=== PATIENT | female | born 1955 | race American Indian/Alaskan Native ===

== ENCOUNTER 2021-07-02 10:06 | Day surgery (SDC) | payer MEDICARE ==
[~2021-07-02 10:06] MED LIST: LACTATED RINGERS 1,000 ML IV SCH; MIDAZOLAM 2 MG/2 ML INJ IV NR; SODIUM CHLORIDE 0.9% IRRIG SOLN 2000 ML IR ONE; WATER FOR IRRIG STERILE 1,500 ML BOTTLE IR ONE
[2021-07-02] MEDS ORDERED: ceFAZolin/Water 2 GM/20 ML 2 GM/20 ML SYRINGE IV ONE (10:48)
[2021-07-02] MEDS ORDERED: ceFAZolin/Water 2 GM/20 ML 2 GM/20 ML SYRINGE IV NR (11:00)
--- NOTE | 2021-07-02 11:17 | Anesthesia Consultation ---
Anesthesia Consult and Med Hx Date of service: 07/02/21 - Airway Anesthetic Teeth Evaluation: Good, Caps ROM Head & Neck: Adequate Mental/Hyoid Distance: Adequate Mallampati Class: Class II Intubation Access Assessment: Probably Good - Pre-Operative Health Status ASA Pre-Surgery Classification: ASA2 Proposed Anesthetic Plan: General - Pulmonary Hx Smoking: Yes (former smoker quit 30yrs ago) Hx Respiratory Symptoms: No - Cardiovascular System Hx Hypertension: Yes (took amlodipine last night) Hx Heart Attack/AMI: No Hx Percutaneous Transluminal Coronary Angioplasty (PTCA): No - Central Nervous System CVA: No - Gastrointestinal Hx Gastroesophageal Reflux Disease: Yes (antiacids prn; asymptomatic today) - Endocrine Hx Renal Disease: No Hx Liver Disease: No Hx Insulin Dependent Diabetes: No Hx Non-Insulin Dependent Diabetes: No Hx Thyroid Disease: No - Additional Comments Anesthesia Medical History Comments: No hx anesthetic complications.
--- NOTE | 2021-07-02 11:18 | Anesthesia Day of Surgery ---
Anesthesia Day of Surgery - Day of Surgery Patient Examined: Yes Patient H&P Reviewed: Yes Patient is NPO: Yes
[2021-07-02] MEDS ORDERED: fentaNYL 100 MCG/2 ML INJ ONE (12:01)
[2021-07-02] MEDS ORDERED: ONDANSETRON 4 MG/2 ML INJ ONE (12:01)
[2021-07-02] MEDS ORDERED: LIDOCAINE MPF (2%) 20 MG/1 ML VIAL 5 ML ONE (12:01)
[2021-07-02] MEDS ORDERED: dexAMETHasone 20 MG/5 ML VIAL ONE (12:01)
[2021-07-02] MEDS ORDERED: propofoL 200 MG/20 ML VIAL IV ONE (12:01)
[2021-07-02] MEDS ORDERED: ePHEDrine SULFATE 50 MG/1 ML INJ ONE (12:16)
[2021-07-02] MEDS ORDERED: SODIUM CHLORIDE 0.9% IRRIG SOLN 2000 ML IR ONE (12:33)
[2021-07-02] MEDS ORDERED: WATER FOR IRRIG STERILE 1,500 ML BOTTLE IR ONE (12:39)
[2021-07-02] MEDS ORDERED: PHENYLEPHRINE/NS 1,000 MCG/10 ML SYRINGE (OR USE) IV ONE (13:07)
--- NOTE | 2021-07-02 13:25 | Post Operative Note ---
Date of procedure: 07/02/21 Pre-op diagnosis: bladder tumor Post-op diagnosis: same Findings: bt Procedure: cysto excision tumor Anesthesia: GETA Surgeon: ALEXIS CALDERA Estimated blood loss: minimal Pathology: list (bladder) Condition: stable Disposition: PACU
--- NOTE | 2021-07-02 13:27 | Discharge Summary ---
Short Stay Discharge Plan Activity: other (no straining ) Weight Bearing Status: Full Weight Bearing Diet: low fat, low cholesterol, low salt Special Instructions: other (inc fluids ) Durable Medical Equipment Needed Upon Discharge: other (home with catheter ) Follow up with: BULL WING [Primary Care Provider] - 7 Days ALEXIS CALDERA MD [Staff Physician] - 7 Days
[2021-07-02] MEDS ORDERED: HYDROmorphone 1 MG/1 ML INJ IV PRN ×2 (13:31)
[2021-07-02] MEDS ORDERED: ONDANSETRON 4 MG/2 ML INJ IV PRN (13:31)
--- NOTE | 2021-07-02 13:54 | Operative Report ---
DATE OF SURGERY: 07/02/2021 PREOPERATIVE DIAGNOSES: Hematuria and bladder cancer. POSTOPERATIVE DIAGNOSES: Hematuria and bladder cancer, pending pathology. PROCEDURES: Cystoscopy, excision of a small bladder tumor at the left dome of the bladder. SURGEON: Enzo Pierce MD ANESTHESIA: General. FINDINGS: This is a woman with a tumor at the dome of the bladder. She had gross hematuria. She now presents for treatment. She has a very thin bladder. DESCRIPTION OF PROCEDURE: The patient was brought to the operating room, placed on the operating table. Following induction of anesthesia, placed in lithotomy position, prepped and draped in usual sterile fashion. The access was difficult because of the location, but you could see that there was a very thin stalk. Retrograde showed good filling, good drainage bilaterally with some air bubbles more on the right. Drainage and fluoroscopy was fine. The tumor was excised with a rigid biopsy instrument and we got deeper biopsies. Definitely included muscle. We saw fatty tissue. The patient tolerated the procedure well. Cystogram showed no significant extravasation. Watters was in good position. The patient tolerated the procedure well and brought to recovery room in stable condition. TID: [id number] RECEIPT: [id number] PEYMAN/MARY
--- NOTE | 2021-07-02 14:36 | Post Anesthesia Evaluation ---
- Post Anesthesia Evaluation Patient Participated: Yes Airway Patent: Yes Stable Respiratory Function: Yes Nausea/Vomiting: No Temp > 96.8F: Yes Pain Manageable: Yes Adequeate Hydration: Yes Anesthesia Complications: No
--- NOTE | 2021-07-02 16:44 | Fluoroscopy Report ---
INTRAOPERATIVE FLUOROSCOPY: RETROGRADE UROGRAPHY INDICATION / CLINICAL INFORMATION: GROSS HEMATURIA. TECHNIQUE: Intraoperative spot images were obtained during the procedure. FINDINGS: Images show bilateral retrograde pyelograms, 10 mL Omnipaque 300 used. See operative/procedure note by performing physician for full details. Fluoroscopy Time: 19 seconds. Fluoroscopy Images: 9 . Signer Name: Vinh Desai MD Signed: 07/02/2021 4:40 PM Workstation Name: [id number]
[2021-07-02 18:11] VITALS: BP 128/67
== END 2021-07-02 15:40 | disposition home or self-care (01) ==
LOC: OR 10:06
PROVIDERS: ATTEND Urology
DX: R31.0 Gross hematuria (principal); C67.1 Malignant neoplasm of dome of bladder; Z20.822 Contact with and (suspected) exposure to COVID-19; I10 Essential (primary) hypertension; K21.9 Gastro-esophageal reflux disease without esophagitis; Z87.891 Personal history of nicotine dependence; Z79.899 Other long term (current) drug therapy; Z98.890 Other specified postprocedural states
CPT/HCPCS: 52234; 74420; 88305; J0690; J1100; J2370; J2405; J2704; J3010; J3490; J7120; Q9967; U0003

== ENCOUNTER 2022-03-16 07:14 | Day surgery (SDC) | payer MEDICARE ==
[2022-03-11 11:50] LABS: Hematocrit 43.7 % (30.3-42.9); Hemoglobin 14.8 gm/dl (10.1-14.3); Mean Corpuscular HGB Conc 34 % (30-34); Mean Corpuscular Volume 88 fl (79-97); Platelet Count 232 K/mm3 (140-440); Red Blood Count 4.98 M/mm3 (3.65-5.03); Red Cell Distribution Width 13.5 % (13.2-15.2)
[2022-03-11 12:18] LABS: Alanine Aminotransferase 9 units/L (7-56); Albumin 4.4 g/dL (3.9-5); BUN/Creatinine Ratio 21; Blood Urea Nitrogen 19 mg/dL (7-17); Calcium 9.3 mg/dL (8.4-10.2); Hemolysis Index 6
[2022-03-16] MEDS ORDERED: ceFAZolin/STERILE WATER 2 GM/20 ML SYRINGE IV NR (08:05)
--- NOTE | 2022-03-16 08:45 | Anesthesia Day of Surgery ---
Anesthesia Day of Surgery - Day of Surgery Patient Examined: Yes Patient H&P Reviewed: Yes Patient is NPO: Yes
[2022-03-16] MEDS ORDERED: HYDROmorphone 0.5 MG/0.5 ML INJ IV PRN ×2 (08:46→09:00)
--- NOTE | 2022-03-16 08:46 | Anesthesia Consultation ---
Anesthesia Consult and Med Hx Date of service: 03/16/22 - Airway Anesthetic Teeth Evaluation: Good, Caps ROM Head & Neck: Adequate Mental/Hyoid Distance: Adequate Mallampati Class: Class III Intubation Access Assessment: Probably Good - Pre-Operative Health Status ASA Pre-Surgery Classification: ASA2 Proposed Anesthetic Plan: General - Pulmonary Hx Smoking: Yes (STOPPED X 30 YRS) Hx Respiratory Symptoms: No Hx Sleep Apnea: No (JOSE E PRE SCREEN LOW RISK) - Cardiovascular System Hx Hypertension: Yes (X 3 YRS) Hx Heart Attack/AMI: No Hx Percutaneous Transluminal Coronary Angioplasty (PTCA): No - Central Nervous System CVA: No Hx Psychiatric Problems: No - Gastrointestinal Hx Gastroesophageal Reflux Disease: Yes (antiacids prn; asymptomatic today) - Endocrine Hx Renal Disease: No Hx Liver Disease: No Hx Insulin Dependent Diabetes: No Hx Non-Insulin Dependent Diabetes: No Hx Thyroid Disease: No - Hematic Hx Anemia: No Hx Sickle Cell Disease: No - Other Systems Hx Alcohol Use: Yes (RARELY) Hx Substance Use: No Hx Cancer: Yes - Additional Comments Anesthesia Medical History Comments: Was here [id number]
[2022-03-16] MEDS ORDERED: LACTATED RINGERS 1,000 ML IV SCH (09:00)
[2022-03-16] MEDS ORDERED: ONDANSETRON 4 MG/2 ML INJ IV PRN (09:00)
[2022-03-16] MEDS ORDERED: MIDAZOLAM 2 MG/2 ML INJ IV NR (09:00)
[2022-03-16] MEDS ORDERED: ceFAZolin/Water 2 GM/20 ML 2 GM/20 ML SYRINGE IV ONE (10:06)
[2022-03-16] MEDS ORDERED: propofoL 200 MG/20 ML VIAL IV ONE (10:49)
[2022-03-16] MEDS ORDERED: LIDOCAINE MPF (2%) 20 MG/1 ML VIAL 5 ML ONE (10:49)
[2022-03-16] MEDS ORDERED: fentaNYL 100 MCG/2 ML INJ ONE (10:49)
--- NOTE | 2022-03-16 11:12 | Post Operative Note ---
Pre-op diagnosis: tcc Post-op diagnosis: same Procedure: cysto bx Anesthesia: GETA Surgeon: ALEXIS CALDERA Estimated blood loss: minimal Pathology: list (bladder) Specimen disposition: to lab Condition: stable Disposition: PACU
--- NOTE | 2022-03-16 11:14 | Discharge Summary ---
Short Stay Discharge Plan Activity: other (no straining ) Weight Bearing Status: Full Weight Bearing Diet: low fat, low cholesterol, low salt Special Instructions: other (inc fluids ) Follow up with: ISMAEL SMITH MD [Primary Care Provider] - 7 Days ALEXIS CALDERA MD [Staff Physician] - 7 Days
[2022-03-16] MEDS ORDERED: WATER FOR IRRIG STERILE 2000 ML IR ONE (11:40)
[2022-03-16] MEDS ORDERED: IOHEXOL 300 MG/ML 50ML IV ONE (11:40)
[2022-03-16] MEDS ORDERED: dexAMETHasone 20 MG/5 ML VIAL ONE (11:49)
[2022-03-16] MEDS ORDERED: ONDANSETRON 4 MG/2 ML INJ ONE (11:49)
[2022-03-16] MEDS ORDERED: GLYCOPYRROLATE 0.4 MG/2 ML INJ ONE (11:49)
[2022-03-16] MEDS ORDERED: ePHEDrine SULFATE 50 MG/1 ML INJ ONE (11:49)
[2022-03-16] MEDS ORDERED: KETOROLAC 30 MG/1 ML INJ ONE (11:49)
--- NOTE | 2022-03-16 12:46 | Operative Report ---
DATE OF SURGERY: 03/16/2022 PREOPERATIVE DIAGNOSES: Bladder cancer, small tiny polypoid area just lateral to the previous lesion. POSTOPERATIVE DIAGNOSES: Bladder cancer, small tiny polypoid area just lateral to the previous lesion. PROCEDURES: Cystoscopy, excision of lesion, retrograde. SURGEON: Enzo Pierce MD ANESTHESIA: General. FINDINGS: This is a woman with history of bladder tumor. Occasional rare hematuria. Cytology is negative. FISH is negative. She now presents for cystoscopy, excision of lesion. DESCRIPTION OF PROCEDURE: The patient was brought to operating room and placed on the operating table. Following induction of anesthesia, placed in lithotomy position, prepped and draped in usual sterile fashion. Cystourethroscopy showed the old scar and just medial to the old scar there was the beginning of a small papillary lesion. This was excised, cauterized. Also, the anterior wall was a little granular. This was biopsied and cauterized. The patient tolerated the procedure well. Catheter will be left for a couple of days, brought to recovery in stable condition. TID: [id number] RECEIPT: [id number] PEYMAN/MARY
--- NOTE | 2022-03-16 14:19 | Fluoroscopy Report ---
INTRAOPERATIVE FLUOROSCOPY: RETROGRADE UROGRAPHY INDICATION: CYSTO BLADDER BX. TECHNIQUE: Intraoperative spot images were obtained during the procedure. FINDINGS: Filling defects in the right ureter may be bubbles of gas. There appears to be persistent narrowing i n the distal right ureter. No significant abnormalities are seen within the left ureter. Please see p rocedure note for details. Fluoroscopy Time: 25 seconds. Fluoroscopy Images: 5. Signer Name: Seng Ramirez MD Signed: 03/16/2022 2:14 PM Workstation Name: [id number]
--- NOTE | 2022-03-16 15:50 | Post Anesthesia Evaluation ---
- Post Anesthesia Evaluation Patient Participated: Yes Airway Patent: Yes Stable Respiratory Function: Yes Nausea/Vomiting: No Temp > 96.8F: Yes Pain Manageable: Yes Adequeate Hydration: Yes Anesthesia Complications: No Block Receding Appropriately: Not Applicable Patient on Ventilator: No
[2022-03-16 18:23] VITALS: BP 116/59
== END 2022-03-16 13:55 | disposition home or self-care (01) ==
LOC: OR 07:14
PROVIDERS: ATTEND Urology
DX: C67.1 Malignant neoplasm of dome of bladder (principal); C67.2 Malignant neoplasm of lateral wall of bladder; N32.89 Other specified disorders of bladder; E78.00 Pure hypercholesterolemia, unspecified; I10 Essential (primary) hypertension; K21.9 Gastro-esophageal reflux disease without esophagitis; Z87.440 Personal history of urinary (tract) infections; Z20.822 Contact with and (suspected) exposure to COVID-19; Z87.891 Personal history of nicotine dependence; Z79.899 Other long term (current) drug therapy; Z88.8 Allergy status to other drugs, medicaments and biological substances; Z98.49 Cataract extraction status, unspecified eye; Z98.891 History of uterine scar from previous surgery; Z96.652 Presence of left artificial knee joint; Z72.89 Other problems related to lifestyle; Z98.890 Other specified postprocedural states
CPT/HCPCS: 36415; 52204; 74420; 80053; 82962; 85027; 88305; C1758; J0690; J1100; J1815; J1885; J2405; J2704; J3010; J3490; J7120; Q9967; U0003